=== PATIENT | female | born 1990 | race Caucasian/White ===

== ENCOUNTER 2017-03-30 17:33 | Emergency (ER) | payer OTHER ==
[~2017-03-30] VITALS: Ht 160 cm; Wt 81.7 kg
[~2017-03-30 17:33] MED LIST: ACETAMINOPHEN-1 EAC1 PO; BISACODYL SUPP10 MG RE; COLACE100 MG PO; LOESTRIN1 EAC1; MIRALAX255 GM PO; NAPROSYN500 MG PO; NORCO 5-325 TA1 EACH PO; PAXIL30 MG PO; PAXIL40 MG PO; PENICILLIN VK500 M1 PO; PEPCID20 MG PO; PHENERGAN 25 MG25 M1 PO; PHENERGAN 25 MG25 MG PO; PHENERGAN-CODE120 ML PO; PHENERGAN50 MG RC; PREDNISONE 20 M20 MG PO; PRENATAL PO; PREVACID15 MG PO; PREVACID30 MG PO; SEASONALE1 EACH PO; ULTRAM 50MG TAB50 MG PO; ZANTAC 150MG T150 M1 PO; ZOLOFT100 MG PO
[2017-03-30] MEDS ORDERED: MOBIC7.5 MG PO (18:09)
[2017-03-30 18:43] VITALS: BP 118/83
== END 2017-03-30 18:44 | disposition home or self-care (01) ==
LOC: ER 17:33
DX: S93.401A Sprain of unspecified ligament of right ankle, initial encounter (principal); F41.9 Anxiety disorder, unspecified; K21.9 Gastro-esophageal reflux disease without esophagitis; Z98.890 Other specified postprocedural states; W18.39XA Other fall on same level, initial encounter; Y93.89 Activity, other specified; Y92.89 Other specified places as the place of occurrence of the external cause; Y99.8 Other external cause status

== ENCOUNTER 2019-08-09 14:52 | Emergency (ER) | payer OTHER ==
[~2019-08-09] VITALS: Ht 160 cm; Wt 90.7 kg
[2019-08-09 14:52] VITALS: BP 133/78
[~2019-08-09 14:52] MED LIST changes: +MOBIC7.5 MG PO
[2019-08-09] MEDS ORDERED: HYDROCODON-ACE1 EAC8 PO (14:54)
[2019-08-09] MEDS ORDERED: IBUPROFEN 200200 M1 PO (14:55)
[2019-08-09] MEDS ORDERED: LORCET 5-325 M1 EACH PO (15:30)
[2019-08-09] MEDS ORDERED: CLINDAMYCIN HC150 MG PO (15:30)
== END 2019-08-09 15:30 | disposition home or self-care (01) ==
LOC: ER 14:52
DX: K04.7 Periapical abscess without sinus (principal); K21.9 Gastro-esophageal reflux disease without esophagitis; Z90.49 Acquired absence of other specified parts of digestive tract

== ENCOUNTER → 2020-10-15 | Outpatient (CLI) | payer OTHER ==
[~2020-10-15] MED LIST changes: +CLINDAMYCIN HC150 MG PO; +HYDROCODON-ACE1 EAC8 PO; +IBUPROFEN 200200 M1 PO; +LORCET 5-325 M1 EACH PO
== END ==
LOC: CAT 16:27
PROVIDERS: ATTEND Nurse Practitioner
DX: S09.90XA Unspecified injury of head, initial encounter (principal); X58.XXXA Exposure to other specified factors, initial encounter; Y93.89 Activity, other specified; Y92.89 Other specified places as the place of occurrence of the external cause; Y99.8 Other external cause status